=== PATIENT | female | born 1970 | race Hispanic/Latino ===

== ENCOUNTER → 2022-01-28 | Outpatient (RCR) | payer OTHER ==
[~2022-01-28] MED LIST: DIAMOX SEQUELS500 MG PO; EFFEXOR; TRAZODONE
== END ==
LOC: OT 01-15 15:57
PROVIDERS: ATTEND Specialist
DX: M75.42 Impingement syndrome of left shoulder (principal); M75.02 Adhesive capsulitis of left shoulder; M25.512 Pain in left shoulder; M25.612 Stiffness of left shoulder, not elsewhere classified; R53.1 Weakness

== ENCOUNTER 2022-02-20 10:00 | Outpatient (RCR) | payer OTHER | END 2022-02-27 | LOC: OT 10:00 | PROVIDERS: ATTEND Specialist | DX: M75.02 Adhesive capsulitis of left shoulder (principal); M75.42 Impingement syndrome of left shoulder ==

== ENCOUNTER 2022-03-18 09:59 | Outpatient (RCR) | payer OTHER | END 2022-03-30 | LOC: OT 09:59 | PROVIDERS: ATTEND Specialist | DX: M75.42 Impingement syndrome of left shoulder (principal) ==

== ENCOUNTER 2022-04-03 15:53 | Outpatient (RCR) | payer OTHER | END 2022-04-30 | LOC: OT 15:53 | PROVIDERS: ATTEND Specialist | DX: M75.02 Adhesive capsulitis of left shoulder (principal); M75.42 Impingement syndrome of left shoulder ==